=== PATIENT | male | born 1995 | race Caucasian/White ===

== ENCOUNTER 2021-09-06 23:55 | Emergency (ER) | payer MEDICAID, SELFPAY ==
[2021-09-07] VITALS: BP 146/81; PULSE 101; RESP 16; TEMP 36.9; O2SAT 98
[2021-09-07 00:12] LABS: Bilirubin Negative (Negative); Blood Negative (Negative); Clarity Clear (Clear); Glucose Negative (Negative); Ketones Negative (Negative); Leukocyte Esterase Negative (Negative); Nitrite Negative (Negative); Urobilinogen 0.2 EU/dL (Up TO 0.2); pH 7.5 (5-8)
--- NOTE | 2021-09-07 00:15 | DI.RAD_ITS ---
Exam(s) XR LUMBAR SPINE COMPLETE EXAM: XR LUMBAR SPINE COMPLETE CLINICAL HISTORY: lower back pain. TECHNIQUE: 2D digital imaging was performed. COMPARISON: No exams were available for comparison FINDINGS: No evidence of fracture, listhesis, or pars defects. Disc spaces exhibit normal height. No signific ant facet arthropathy. SI joints unremarkable. Bone density normal. No osseous lesions. IMPRESSION: No significant radiographic findings in the lumbosacral spinal column. DATA REPOSITORY: RADIATION DOSE DELIVERED:
--- NOTE | 2021-09-07 00:17 | ED.GENADUL_ITS ---
Discharge Plan Disposition Patient Disposition: HOME Condition: Stable Discharge Details Clinical Impression: Low back pain ED Provider: Antony Garland Home Meds and New Rx's Prescriptions: New cyclobenzaprine 10 mg tablet 10 mg PO TID PRNQty: 20 0RF Continued amoxicillin-pot clavulanate 875-125 mg Tablet 1 tab PO Q12H 0RF Discharge Instructions Additional Instructions: your xray did not show concerning findings at this time you can take 1000mg tylenol and 600mg ibuprofen every 6 hours as needed follow up with your primary care provider in a week if pain continues do not drink alcohol or drive if you take the cyclobenzaprine if you feel more ill, have severe worsening pain or difficulty urinating return to the emergency department Medical Decision Making 26 yo male who denies chronic medical problems who lives in [place] but is in this area in a hotel as his house is having work done on it comes in with cc of low back pain. He states earlier aroud 4pm he bent over and felt a pain in the mid lower back, denies falls or other trauma. Since then the pain has radiated down the legs and came here for an evaluation. He denies fevers though he did have body aches earlier, is on augmentin for sinusitis which is improving per patient. He denies smoking, frequent alcohol use and denies drug use. No urinary retention and no loss of bowel control. He arrives appearing well. He has no deficits in motor or sensation of the extremities, no saddle anesthesia, normal reflexes in the legs, normal pulses. He has tenderness to the mid lumbar back no erythema or warmth or palpable deformities. No abdominal tenderness. His symptoms seem most likely a strain vs muscle spasm. He has no findings on exam to suggest cauda equina or abscess and do not feel emergent MRI indicated, no recent uri symptoms and no deficits in sensaiton so doubt transverse myelititis. Will xray to evaluate for possible compression fracture though this is unlikely given lack of trauma and reassess. pt stable and has mild improvement with toradol, drove him self here so muscle r elaxers not given while here. His xray is negative on my read, suspect strain vs spasm will start him on tylenol, ibuprofen and as needed muscle relaxer. Advised to f/u with pcp if pain continues within a week and return precautions given Differential Diagnosis Differential Diagnosis: muscle spasm, back strain, disc herniation Imaging Data Radiologic Study: Attestation: I personally reviewed and interpreted this imaging study as follows: Imaging: X-Ray My impression: no acute findings HPI General Mode of arrival: ambulatory . Date/Time Provider Initiated Documentation: 09/07/21 00:00 . Limitations to Documentation: no limitations . Information obtained by: patient . History of Present Illness 26 year old M presents to the emergency department with the chief complaint of low back pain, described as moderate, Quality is described as aching, and is localized to the back. Patient reports no radiation. Patient started experiencing this hour(s) (8) and it has been constant. improves with No relieving factors improve symptom(s), No exacerbating factors reported . Patient notes no other symptoms.. Related Data Home Medications Medication Instructions Recorded Confirmed amoxicillin 875 mg-potassium 1 tab PO Q12H 09/07/21 09/07/21 clavulanate 125 mg tablet cyclobenzaprine 10 mg tablet 10 mg PO TID PRN #20 tab 09/07/21 Previous Rx's Medication Instructions Recorded cyclobenzaprine 10 mg tablet 10 mg PO TID PRN #20 tab 09/07/21 Allergies Allergy/AdvReac Type Severity Reaction Status Date / Time No Known Allergies Allergy Unverified 09/07/21 00:04 General Stated Complaint: Nk/Back Pain TIA: 3 Review of Systems All systems reviewed & are unremarkable except as noted in HPI and below Constitutional Constitutional: Denies chills, Denies fever(s) and Denies weakness Cardiovascular Cardiovascular: Denies chest pain and Denies dyspnea Respiratory Respiratory: Denies cough and Denies dyspnea Gastrointestinal Gastrointestinal: Denies abdominal pain, Denies nausea and Denies vomiting Genitourinary Genitourinary: Denies dysuria Integumentary/Breasts Skin/Breast: Denies rash Neurologic Neurologic: Denies weakness PFSH All Active Problems (Updated 09/07/21 @ 01:02 by Antony Garland MD) Low back pain (Acute) Social History Smoking/Tobacco Use Status: Former Tobacco Use Quit Date: 07/19/21 Smoking risk assessment performed?: Yes Alcohol Intake: current Alcohol Intake frequency: holidays/special occasions only Do you feel safe at home: Yes Do you feel safe in your relationship?: Yes Exam Const General: no acute distress Orientation: alert [facility] Head: normal to inspection Ears: external ears normal General nose exam: external nose normal Mouth: moist mucous membranes Eyes General: appearance normal, both eyes and all related structures Neck Neck: normal visual inspection Resp Effort & Inspection: normal respiratory effort and able to speak in complete sentences Cardio Rate: regular rate GI Palpation: soft and nontender Back/Spine/Pelvis Back: no CVA tenderness Skin General skin exam: no rashes or lesions noted Neuro General: patient alert and patient oriented x3 Extrem General: normal to inspection Psych Mental Status: mental status grossly normal Course Vital Signs Vital signs: Vital Signs Temperature 36.9 C 09/07/21 00:00 Pulse 101 H 09/07/21 00:00 Respiratory Rate 16 09/07/21 00:00 Blood Pressure 146/81 H 09/07/21 00:00 Pulse Oximetry 98 09/07/21 00:00 Temperature 36.9 C 09/07/21 00:00 Pulse 101 H 09/07/21 00:00 Respiratory Rate 16 09/07/21 00:00 Respiratory Effort Non-Labored 09/07/21 00:10 Blood Pressure 146/81 H 09/07/21 00:00 Pulse Oximetry 98 09/07/21 00:00 Pain Level 6 09/07/21 00:00
[2021-09-07] MEDS: Ketorolac 15 MG/ML VIAL IM (00:37)
--- NOTE | 2021-09-07 01:06 | DI.VRAD_ITS ---
PROCEDURE INFORMATION: Exam: XR Lumbosacral Spine Exam date and time: 09/07/2021 12:17 AM Age: 26 years old Clinical indication: Low back pain; Patient HX: Lower back pain TECHNIQUE: Imaging protocol: XR of the lumbosacral spine. Views: 4 or 5 views. COMPARISON: No relevant prior studies available. FINDINGS: Bones/joints: There are 5 non rib-bearing lumbar type vertebra. Vertebral body heights are preserved. No spondylolisthesis. There is straightening of normal lumbar lordosis which could be related to positioning or muscle spasm. Intervertebral disc heights are grossly preserved. No spondylolysis. Soft tissues: No focal abnormality, IMPRESSION: No acute findings. Dictated and Authenticated by: Clint Rodney MD. Ordering:JENNIFER Hardy MD
[2021-09-07] MEDS: Cyclobenzaprine 10 MG TAB, 3 TABS/BTL PO (01:13)
== END 2021-09-07 01:26 | disposition home or self-care (01) ==
PROVIDERS: Emergency Provider Emergency Medicine
DX: M54.50 Low back pain, unspecified (principal)
CPT/HCPCS: 96372; 99284; 72110; 81003; 99283; J1885

== ENCOUNTER 2024-02-14 18:24 | Outpatient (REF) | payer MEDICAID, SELFPAY ==
[2024-02-14 13:39] LABS: Abs Immature Grans 0.01 10^3/uL (0.0-0.06); Absolute Basophil Count 0.06 10^3/uL (0.0-0.2); Absolute Eosinophil Count 0.17 10^3/uL (0.0-0.7); Absolute Lymphocyte Count 0.94 10^3/uL (1.2-3.4); Absolute Monocyte Count 0.27 10^3/uL (0.1-0.8); Absolute Neutrophil Count 1.88 10^3/uL (1.2-6.7); Basophils % 1.8 %; Eosinophils % 5.1 %; HCT 48.9 % (40.0-50.0); HGB 15.8 g/dL (13.5-17.5); Immature Grans % 0.3 %; Lymphocytes % 28.2 %; MCH 28.4 pg (27.0-33.0); MCHC 32.3 % (32.0-36.0); MCV 88 fL (80-95); Monocytes % 8.1 %; Neutrophils % 56.5 %; Platelet Count 199 10^3/uL (130-400); RBC 5.57 10^6/uL (4.36-5.78); RDW 11.8 % (11.8-14.1); RDW-SD 37.9 fL; WBC 3.33 10^3/uL (4.4-10.8)
[2024-02-14 22:34] LABS: IgE 21 IU/mL (<158)
[2024-02-17 16:53] LABS: Aspergillus Fumigatus IgE <0.10 kU/L (<0.70); Cat Epithelium IgE <0.10 kU/L (<0.70); Cheese Cheddar IgE <0.10 kU/L (<0.70); Chicken Feathers IgE <0.10 kU/L (<0.70); Cockroach IgE <0.10 kU/L (<0.70); D Farinae IgE 1.66 kU/L (<0.70); D Pteronyssinus IgE 1.84 kU/L (<0.70); Dog Dander IgE <0.10 kU/L (<0.70); Eastern Sycamore IgE <0.10 kU/L (<0.70); False Ragweed, IgE <0.10 kU/L (<0.70); Giant Ragweed IgE <0.10 kU/L (<0.70); June Grass IgE 0.42 kU/L (<0.70); Oak IgE <0.10 kU/L (<0.70); Short Ragweed IgE <0.10 kU/L (<0.70); Silver Birch IgE <0.10 kU/L (<0.70); Timothy Grass IgE 0.31 kU/L (<0.70); Walnut Tree IgE <0.10 kU/L (<0.70)
[2024-02-17 17:20] LABS: Candida Albicans (Monilia),IgE <0.10 kU/L (<0.70); Cheese, Mold IgE <0.10 kU/L (<0.70); Spruce, IgE <0.10 kU/L (<0.70)
[2024-02-18 16:47] LABS: CLASS 0; Cedar Red IgE <0.10 kU/L (<0.35)
== END 2024-02-14 18:25 | disposition home or self-care (01) ==
LOC: LBN 18:24
PROVIDERS: PCP Family Medicine; Visit Provider Physician Assistant Surgical
DX: J30.9 Allergic rhinitis, unspecified (principal); R06.2 Wheezing
CPT/HCPCS: 86003; 82785; 84307; 85025